=== PATIENT | female | born 2000 | race Caucasian/White ===

== ENCOUNTER → 2024-08-02 14:41 | Outpatient (REF) | payer BC, SELFPAY | LOC: HWRAD 14:41 | PROVIDERS: ATTENDING PHYSICIAN Physician Assistant Medical | DX: R22.1 Localized swelling, mass and lump, neck (principal); M54.6 Pain in thoracic spine; M54.50 Low back pain, unspecified | CPT/HCPCS: 72072; 72110; 76536 ==

== ENCOUNTER → 2024-08-16 12:39 | Outpatient (REF) | payer BC, SELFPAY | LOC: HWRAD 12:39 | PROVIDERS: ATTENDING PHYSICIAN Otolaryngology; FAMILY PHYSICIAN Physician Assistant Medical | DX: R59.0 Localized enlarged lymph nodes (principal) | CPT/HCPCS: 70490 ==